=== PATIENT | female | born 1950 | race Caucasian/White ===

== ENCOUNTER 2018-08-19 15:45 | Inpatient (IN) | payer OTHER ==
[~2018-08-19] VITALS: Ht 165.1 cm; Wt 103.0 kg
[2018-08-19 16:01] VITALS: BP_SYST 155
[2018-08-19 16:42] LABS: BASOPHILS # (AUTO) 0.1 K/uL (0.0-0.2); BASOPHILS % (AUTO) 0.6 % (0.0-2.0); EOSINOPHILS # (AUTO) 0.1 K/uL (0.0-0.4); HEMATOCRIT 47.3 % (36-48); HEMOGLOBIN 15.9 g/dL (12.0-16.0); LYMPHOCYTES # (AUTO) 2.8 K/uL (1.0-5.5); MEAN CORPUSCULAR HEMOGLOBIN 30 pg (27-31); MEAN CORPUSCULAR HGB CONC 34 % (32-36); MEAN CORPUSCULAR VOLUME 89 fL (79.0-98.0); MONOCYTES # (AUTO) 0.4 K/uL (0.0-1.0); MONOCYTES % (AUTO) 5.3 % (1.7-9.3); NEUTROPHILS % (AUTO) 59.1 % (40.0-70.0); PLATELET COUNT (AUTO) 233 K/uL (130-430); RED BLOOD CELL COUNT(AUTO) 5.34 MIL/uL (4.2-6.2); RED CELL DISTRIBUTION WIDTH 13.5 % (9.0-15.0); WHITE BLOOD COUNT (AUTO) 8.4 K/uL (4.8-10.8)
[2018-08-19 16:43] LABS: BILIRUBIN,URINE NEGATIVE (NEGATIVE); BLOOD, URINE NEGATIVE (NEGATIVE); CLARITY/URINE CLEAR (CLEAR); COLOR,URINE YELLOW (YELLOW); GLUCOSE,URINE 3+ (NEGATIVE); KETONES,URINE NEGATIVE (NEGATIVE); LEUKOCYTE ESTERASE ,URINE NEGATIVE (NEGATIVE); NITRITE, URINE NEGATIVE (NEGATIVE); PROTEIN URINE NEGATIVE (NEGATIVE); UROBILINOGEN,URINE 0.2 (0.2-1.0)
[2018-08-19] MEDS ORDERED: INSULIN REGULAR, HUMAN 10 UNITS/0.1 ML INJ IVP ONE (16:45)
[2018-08-19] MEDS ORDERED: NACL 0.9% 1,000 ML IV ONE (16:45)
[2018-08-19 16:52] LABS: ANION GAP 11 (5-15); CALCIUM 9.3 mg/dL (8.4-11.0); CHLORIDE 95 mmol/L (98-107); CREATININE 0.97 mg/dL (0.55-1.30); POTASSIUM 4.2 mmol/L (3.5-5.1); SODIUM SERUM 132 mmol/L (136-145); UREA NITROGEN, BLOOD 9 mg/dL (8-21)
[2018-08-19 16:54] LABS: BARBITURATE, URINE NEGATIVE (NEG <=200); BENZODIAZEPINE, URINE NEGATIVE (NEG <=150); CANNABINOID, URINE NEGATIVE (NEG <=50); COCAINE, URINE NEGATIVE (NEG <=150); METHAMPHETAMINES SCREEN,URINE NEGATIVE (NEG <=500); OPIATE, URINE NEGATIVE (NEG <=100); PHENCYCLIDINE SCREEN,URINE NEGATIVE (NEG <=25); UR TRICYCLIC ANTIDEPRESSANTS NEGATIVE (NEG <=300); URINE AMPHETAMINE NEGATIVE (NEG <=500); URINE METHADONE NEGATIVE (NEG <=200); URINE OXYCODONE SCREEN NEGATIVE (NEG <=100); URINE PROPOXYPHENE SCREEN NEGATIVE (NEG <=300)
[2018-08-19 16:55] LABS: GFR AFRICAN AMERICAN 73 mL/min (>90); GLUCOSE 489 mg/dL (70-99); PROTHROMBIN TIME 10.1 SECS (9.5-12.5)
[2018-08-19 16:56] LABS: ALANINE AMINOTRANSFERASE 29 U/L (12-78); ALBUMIN 3.9 g/dL (3.4-4.8); ASPARTATE AMINOTRANSFERASE 16 U/L (10-37); TOTAL BILIRUBIN 0.5 mg/dL (0.0-1.0)
[2018-08-19 16:58] LABS: ALCOHOL, BLOOD < 3 mg/dL (<10)
[2018-08-19 17:17] LABS: BACTERIA,URINE RARE /HPF (None Seen); RBC,URINE 0-3 /HPF (0-3); WBC,URINE 0-3 /HPF (0-3)
[2018-08-19] MEDS ORDERED: ONDANSETRON HCL 4 MG/2 ML VIAL IVP ONE (18:30)
[2018-08-19] MEDS ORDERED: ASPIRIN 325 MG TABLET PO ONE (18:45)
[2018-08-19] MEDS ORDERED: LIP10 PO (19:01)
[2018-08-19] MEDS ORDERED: LISI10TA5 PO (19:01)
[2018-08-19] MEDS ORDERED: MEMA10TA PO (19:01)
[2018-08-19] MEDS ORDERED: SITA100T11 PO (19:01)
[2018-08-19] MEDS ORDERED: METF1000 PO (19:01)
[2018-08-19] MEDS ORDERED: GLIM4TAB PO (19:01)
[2018-08-19] MEDS ORDERED: BUPR300T55 PO (19:01)
[2018-08-19 19:24] VITALS: BP_SYST 137
[2018-08-19 20:00] VITALS: BP_SYST 137
[2018-08-19] MEDS ORDERED: DEXTROSE 50% JECT 50 ML DISP.SYRIN IVP PRN (20:30)
[2018-08-19] MEDS: INSULIN ASPART 100 UNITS/ML, 10 ML VIAL (NovoLOG) SUBCUT PRN (21:16)
[2018-08-19 21:56] VITALS: BP_SYST 145
[2018-08-20] MEDS: NACL 0.9% 1,000 ML IV SCH ×3 (00:24→20:54)
[2018-08-20] MEDS: INSULIN ASPART 100 UNITS/ML, 10 ML VIAL (NovoLOG) SUBCUT PRN ×4 (06:12→21:31)
[2018-08-20 08:00] VITALS: BP_SYST 140
[2018-08-20] MEDS: ATORVASTATIN 10 MG TABLET PO SCH (08:05)
[2018-08-20] MEDS: buPROPion HCL 150 MG XL TAB PO SCH (08:05)
[2018-08-20] MEDS: metFORMIN HCL 500 MG TABLET PO SCH ×2 (08:05→17:26)
[2018-08-20] MEDS: GLIMEPIRIDE 2 MG TABLET PO SCH (08:06)
[2018-08-20] MEDS: LISINOPRIL 10 MG TABLET (PRINIVIL) PO SCH (08:07)
[2018-08-20] MEDS: MEMANTINE HCL 5 MG TABLET PO SCH ×2 (08:07→20:55)
[2018-08-20 12:56] VITALS: BP_SYST 121
[2018-08-20 14:00] LABS: BASOPHILS % (AUTO) 0.5 % (0.0-2.0); EOSINOPHILS # (AUTO) 0.1 K/uL (0.0-0.4); EOSINOPHILS % (AUTO) 1.1 % (0.0-4.0); HEMOGLOBIN 14.1 g/dL (12.0-16.0); LYMPHOCYTES # (AUTO) 2.5 K/uL (1.0-5.5); LYMPHOCYTES % (AUTO) 31.6 % (20.5-51.5); MEAN CORPUSCULAR HEMOGLOBIN 29 pg (27-31); MEAN CORPUSCULAR HGB CONC 32 % (32-36); MEAN CORPUSCULAR VOLUME 90 fL (79.0-98.0); MONOCYTES # (AUTO) 0.3 K/uL (0.0-1.0); MONOCYTES % (AUTO) 4.4 % (1.7-9.3); NEUTROPHILS # (AUTO) 4.9 K/uL (1.8-7.7); NEUTROPHILS % (AUTO) 62.4 % (40.0-70.0); PLATELET COUNT (AUTO) 232 K/uL (130-430); RED BLOOD CELL COUNT(AUTO) 4.88 MIL/uL (4.2-6.2); RED CELL DISTRIBUTION WIDTH 13.7 % (9.0-15.0); WHITE BLOOD COUNT (AUTO) 7.8 K/uL (4.8-10.8)
[2018-08-20 14:25] LABS: CALCIUM 8.8 mg/dL (8.4-11.0); CREATININE 0.7 mg/dL (0.55-1.30)
[2018-08-20 14:30] LABS: ALBUMIN 3.2 g/dL (3.4-4.8); TOTAL BILIRUBIN 0.4 mg/dL (0.0-1.0)
[2018-08-20] MEDS ORDERED: VANCOMYCIN HCL 1,500 MG in NS 250 ML IV SCH (15:00)
[2018-08-20 16:23] VITALS: BP_SYST 123
[2018-08-20] MEDS ORDERED: LORazepam 2 MG/ML VIAL IVP PRN (18:30)
[2018-08-20 20:00] VITALS: BP_SYST 135
[2018-08-21 00:59] VITALS: BP_SYST 142
[2018-08-21] MEDS: VANCOMYCIN HCL 1.25 GM/NS 250 ML IV SCH ×2 (03:31→15:50)
[2018-08-21] MEDS: NACL 0.9% 1,000 ML IV SCH ×2 (06:31→15:51)
[2018-08-21] MEDS: INSULIN ASPART 100 UNITS/ML, 10 ML VIAL (NovoLOG) SUBCUT PRN ×3 (06:35→20:20)
[2018-08-21 07:19] LABS: ALBUMIN 2.7 g/dL (3.4-4.8); CALCIUM 8.5 mg/dL (8.4-11.0); CREATININE 0.63 mg/dL (0.55-1.30); POTASSIUM 4.1 mmol/L (3.5-5.1); TOTAL BILIRUBIN 0.3 mg/dL (0.0-1.0)
[2018-08-21 08:00] VITALS: BP_SYST 122
[2018-08-21] MEDS: MEMANTINE HCL 5 MG TABLET PO SCH ×2 (08:59→20:14)
[2018-08-21] MEDS: metFORMIN HCL 500 MG TABLET PO SCH ×2 (09:00→17:39)
[2018-08-21] MEDS: LISINOPRIL 10 MG TABLET (PRINIVIL) PO SCH (09:02)
[2018-08-21] MEDS: ATORVASTATIN 10 MG TABLET PO SCH (09:03)
[2018-08-21] MEDS: buPROPion HCL 150 MG XL TAB PO SCH (09:03)
[2018-08-21] MEDS: GLIMEPIRIDE 2 MG TABLET PO SCH (09:03)
[2018-08-21 12:31] VITALS: BP_SYST 121
[2018-08-21 16:48] VITALS: BP_SYST 126
[2018-08-21 20:00] VITALS: BP_SYST 142
[2018-08-21] MEDS: CEFEPIME 1 GM in D5W 50 ML IV SCH (20:13)
[2018-08-22 00:41] VITALS: BP_SYST 108
[2018-08-22] MEDS: VANCOMYCIN HCL 1.25 GM/NS 250 ML IV SCH ×2 (03:08→15:03)
[2018-08-22] MEDS: NACL 0.9% 1,000 ML IV SCH ×3 (03:08→21:22)
[2018-08-22 08:08] VITALS: BP_SYST 138
[2018-08-22] MEDS: CEFEPIME 1 GM in D5W 50 ML IV SCH ×2 (08:35→21:16)
[2018-08-22] MEDS: ATORVASTATIN 10 MG TABLET PO SCH (08:35)
[2018-08-22] MEDS: LISINOPRIL 10 MG TABLET (PRINIVIL) PO SCH (08:35)
[2018-08-22] MEDS: metFORMIN HCL 500 MG TABLET PO SCH ×2 (08:36→17:23)
[2018-08-22] MEDS: buPROPion HCL 150 MG XL TAB PO SCH (08:36)
[2018-08-22] MEDS: GLIMEPIRIDE 2 MG TABLET PO SCH (08:36)
[2018-08-22] MEDS: MEMANTINE HCL 5 MG TABLET PO SCH ×2 (08:36→21:16)
[2018-08-22] MEDS: INSULIN ASPART 100 UNITS/ML, 10 ML VIAL (NovoLOG) SUBCUT PRN ×2 (11:24→17:23)
[2018-08-22 12:35] VITALS: BP_SYST 130
[2018-08-22 16:51] VITALS: BP_SYST 128
[2018-08-22 19:47] VITALS: BP_SYST 126
[2018-08-23 00:16] VITALS: BP_SYST 146
[2018-08-23] MEDS: VANCOMYCIN HCL 1.25 GM/NS 250 ML IV SCH ×2 (03:13→14:13)
[2018-08-23] MEDS: NACL 0.9% 1,000 ML IV SCH ×2 (06:11→14:18)
[2018-08-23 08:00] VITALS: BP_SYST 145
[2018-08-23] MEDS: metFORMIN HCL 500 MG TABLET PO SCH ×2 (09:37→17:25)
[2018-08-23] MEDS: CEFEPIME 1 GM in D5W 50 ML IV SCH ×2 (09:37→20:25)
[2018-08-23] MEDS: MEMANTINE HCL 5 MG TABLET PO SCH ×2 (09:37→20:23)
[2018-08-23] MEDS: ATORVASTATIN 10 MG TABLET PO SCH (09:38)
[2018-08-23] MEDS: LISINOPRIL 10 MG TABLET (PRINIVIL) PO SCH (09:38)
[2018-08-23] MEDS: GLIMEPIRIDE 2 MG TABLET PO SCH (09:39)
[2018-08-23] MEDS: buPROPion HCL 150 MG XL TAB PO SCH (09:39)
[2018-08-23 11:34] VITALS: BP_SYST 153
[2018-08-23] MEDS: INSULIN ASPART 100 UNITS/ML, 10 ML VIAL (NovoLOG) SUBCUT PRN ×2 (11:42→16:15)
[2018-08-23 15:25] VITALS: BP_SYST 146
[2018-08-23 19:50] VITALS: BP_SYST 135
[2018-08-24 00:51] VITALS: BP_SYST 136
[2018-08-24] MEDS: VANCOMYCIN HCL 1.25 GM/NS 250 ML IV SCH ×2 (02:02→15:25)
[2018-08-24 02:27] LABS: BASOPHILS % (AUTO) 0.3 % (0.0-2.0); EOSINOPHILS # (AUTO) 0.2 K/uL (0.0-0.4); EOSINOPHILS % (AUTO) 2.4 % (0.0-4.0); HEMATOCRIT 39.3 % (36-48); LYMPHOCYTES # (AUTO) 2.2 K/uL (1.0-5.5); LYMPHOCYTES % (AUTO) 31.1 % (20.5-51.5); MEAN CORPUSCULAR HEMOGLOBIN 30 pg (27-31); MEAN CORPUSCULAR HGB CONC 33 % (32-36); MEAN CORPUSCULAR VOLUME 89 fL (79.0-98.0); MONOCYTES # (AUTO) 0.5 K/uL (0.0-1.0); MONOCYTES % (AUTO) 6.6 % (1.7-9.3); NEUTROPHILS # (AUTO) 4.1 K/uL (1.8-7.7); NEUTROPHILS % (AUTO) 59.6 % (40.0-70.0); PLATELET COUNT (AUTO) 195 K/uL (130-430); RED CELL DISTRIBUTION WIDTH 13.8 % (9.0-15.0)
[2018-08-24 02:31] LABS: CALCIUM 8.4 mg/dL (8.4-11.0); CREATININE 0.72 mg/dL (0.55-1.30); POTASSIUM 3.9 mmol/L (3.5-5.1)
[2018-08-24 02:41] LABS: TOTAL BILIRUBIN 0.3 mg/dL (0.0-1.0)
[2018-08-24] MEDS: NACL 0.9% 1,000 ML IV SCH ×3 (04:25→23:31)
[2018-08-24 08:47] VITALS: BP_SYST 139
[2018-08-24] MEDS: buPROPion HCL 150 MG XL TAB PO SCH (08:57)
[2018-08-24] MEDS: CEFEPIME 1 GM in D5W 50 ML IV SCH ×2 (08:57→20:07)
[2018-08-24] MEDS: ATORVASTATIN 10 MG TABLET PO SCH (08:58)
[2018-08-24] MEDS: metFORMIN HCL 500 MG TABLET PO SCH ×2 (08:58→17:35)
[2018-08-24] MEDS: GLIMEPIRIDE 2 MG TABLET PO SCH (08:58)
[2018-08-24] MEDS: MEMANTINE HCL 5 MG TABLET PO SCH ×2 (08:59→20:03)
[2018-08-24] MEDS: LISINOPRIL 10 MG TABLET (PRINIVIL) PO SCH (09:00)
[2018-08-24] MEDS ORDERED: LACT1CAP57 PO (10:20)
[2018-08-24] MEDS ORDERED: LEVO250T2 PO (10:20)
[2018-08-24] MEDS: INSULIN ASPART 100 UNITS/ML, 10 ML VIAL (NovoLOG) SUBCUT PRN (11:19)
[2018-08-24 11:22] VITALS: BP_SYST 144
[2018-08-24 15:24] VITALS: BP_SYST 141
[2018-08-24 20:00] VITALS: BP_SYST 148
[2018-08-25] VITALS: BP_SYST 130
[2018-08-25] MEDS: VANCOMYCIN HCL 1.25 GM/NS 250 ML IV SCH ×2 (02:09→14:51)
[2018-08-25] MEDS: NACL 0.9% 1,000 ML IV SCH (05:06)
[2018-08-25 08:00] VITALS: BP_SYST 142
[2018-08-25] MEDS: metFORMIN HCL 500 MG TABLET PO SCH ×2 (08:11→17:22)
[2018-08-25] MEDS: buPROPion HCL 150 MG XL TAB PO SCH (08:11)
[2018-08-25] MEDS: MEMANTINE HCL 5 MG TABLET PO SCH (08:11)
[2018-08-25] MEDS: LISINOPRIL 10 MG TABLET (PRINIVIL) PO SCH (08:12)
[2018-08-25] MEDS: CEFEPIME 1 GM in D5W 50 ML IV SCH (08:12)
[2018-08-25] MEDS: ATORVASTATIN 10 MG TABLET PO SCH (08:12)
[2018-08-25] MEDS: GLIMEPIRIDE 2 MG TABLET PO SCH (08:12)
[2018-08-25 11:09] VITALS: BP_SYST 129
[2018-08-25] MEDS: INSULIN ASPART 100 UNITS/ML, 10 ML VIAL (NovoLOG) SUBCUT PRN (11:51)
[2018-08-25 15:04] VITALS: BP_SYST 145
[2018-08-25 16:36] VITALS: BP_SYST 145
[2018-08-25] MEDS ORDERED: CEFE1FRO IV (17:52)
[2018-08-25] MEDS ORDERED: MAXPM1 IV (17:53)
== END 2018-08-25 19:35 | DRG 871 ==
LOC: SED 15:45 → STU 18:54 → SMU 08-21 10:37
PROVIDERS: ADMIT Internal Medicine Hospice and Palliative Medicine; ATTEND Internal Medicine Hospice and Palliative Medicine
DX: A41.2 Sepsis due to unspecified staphylococcus (principal); G93.41 Metabolic encephalopathy; N39.0 Urinary tract infection, site not specified; E87.2 Acidosis; E11.65 Type 2 diabetes mellitus with hyperglycemia; G30.9 Alzheimer's disease, unspecified; I10 Essential (primary) hypertension; B95.5 Unspecified streptococcus as the cause of diseases classified elsewhere; F02.80 Dementia in other diseases classified elsewhere, unspecified severity, without behavioral disturbance, psychotic disturbance, mood disturbance, and anxiety; F10.20 Alcohol dependence, uncomplicated; Y90.9 Presence of alcohol in blood, level not specified; F41.9 Anxiety disorder, unspecified
CPT/HCPCS: 36415; 70450-TC; 71045; 80053; 80202-TC; 80307; 81000-TC; 82009-TC; 82962; 83605; 84484; 85025; 85610-TC; 85730-TC; 87040-TC; 87086; 87186-TC; 93005; 96361; 96374; 96375; 99285; G0482; J0692; J1815; J2405; J3370; J7030; J7050; J7060